=== PATIENT | female | born 1975 | race Caucasian/White ===

== ENCOUNTER 2017-01-08 16:07 | Inpatient (IN) | payer MEDICARE, OTHER ==
--- NOTE | ~2017-01-08 | PN ---
Unit #: [id number] #: [id number] Patient: JACOB CONKLIN [id number] [facility] [address] [place] [address] [id number] MR#: [id number] NAME: JACOB CONKLIN. ROOM: P252 Age: 41 Sex: F Admission Date: 01/08/2017 : 1975 Attending Physician: Jordan Lewis M.D. Admitting Physician: Jordan Lewis M.D. Primary Care Physician: Primary Care Physician No IRMACE PROGRESS NOTES DATE OF SERVICE: 01/10/2017 DISCUSSION Ms. Black is a 41-year-old female, seen on 01/10/2017. The patient dressed casually in hospital attire. Mood is sad, dysphoric, anxious. The patient reports medication is helping her decrease in anxiety. The patient's vital signs stable; temperature 97.7, pulse 68, and blood pressure 133/81. The patient was able to maintain safe behavior, able to participate in programing. The patient was out in milieu, interacted with peer, still having problem with the anxiety. Complete review of systems unremarkable. MENTAL STATUS EXAMINATION General appearance, the patient dressed casually in hospital attire. Attention span and concentration, fair. Oriented in place and person. Mood and affect, labile. Speech, monotone. Thought process, goal directed. The patient denied any thoughts of harming self or others, but still having lot of anxiety, mood lability, seclusive, isolative. Recent and remote memory, poor. Insight and judgment, poor. DIAGNOSIS Major depressive disorder, recurrent. ASSESSMENT AND PLAN Advised to continue with current medication and therapeutic protocol. If needed, consider further adjustment of medication. Dictated by... Brittany Aguilar/loree TD: 01/10/2017 15:22 JOB #: [id number] Unit #: [id number] #: [id number] Patient: JACOB CONKLIN [facility] PROGRESS NOTES Page 1 of 1 X Jordan Lewis MD X PROGRESS NOTE
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
--- NOTE | ~2017-01-08 | HP ---
Unit #: [id number] #: [id number] Patient: JACOB CONKLIN [id number] [place] [address] [id number] MR#: [id number] NAME: JACOB CONKLIN. ROOM: P252 Age: 41 Sex: F Admission Date: 01/08/2017 : 1975 Attending Physician: Jordan Lewis M.D. Admitting Physician: Jordan Lewis M.D. Primary Care Physician: Primary Care Physician No HISTORY AND PHYSICAL HISTORY OF PRESENT ILLNESS The patient is a 41-year-old female admitted to [address] [place] [address] on 01/08/2017 for suicidal ideations. PAST MEDICAL HISTORY Patient denies. PAST SURGICAL HISTORY The patient denies. SOCIAL HISTORY The patient is disabled. She lives at the [facility] [email or web address] [facility] [employer]. She smokes two packs of cigarettes daily, denies alcohol and drug use. FAMILY MEDICAL HISTORY Noncontributory. ALLERGIES No known drug allergies. CURRENT MEDICATIONS [place]. REVIEW OF SYSTEMS CONSTITUTIONAL: No fever or chills. HEENT: Denies any sore throat, ear pain or runny nose. CARDIOVASCULAR: Denies chest pain, irregular heart rhythm or palpitations. CHEST: Denies shortness of breath or cough. No hemoptysis. GASTROINTESTINAL: Denies nausea, vomiting, diarrhea or chronic constipation. ENDOCRINE: Denies history of increased thirst or urination. No recent significant weight loss or gain. GENITOURINARY: Denies dysuria, frequency, or hematuria. SKIN: Denies any rashes. HEMATOLOGIC: Denies history of increased bleeding or bruising. MUSCULOSKELETAL: Denies any hot, swollen joints. No generalized muscle pain. NEUROLOGIC: Denies problems with vision or speech. No frequent, severe headaches. No numbness, tingling or weakness in any extremities. Denies loss of bladder or bowel control. PHYSICAL EXAM GENERAL: She is awake, alert and oriented in no acute distress. Unit #: [id number] #: [id number] Patient: JACOB CONKLIN VITAL SIGNS: Temperature 98.0, heart rate 76, respiration 18, blood pressure 126/80. HEIGHT: 5'2". WEIGHT: 113 pounds. SKIN: Warm and dry without rash or lesion. HEENT: Normocephalic. TMs not viewed. Oral and nasal passages clear. Conjunctivae clear. PERRLA. EOMs intact. NECK: Supple without lymphadenopathy or thyromegaly. HEART: Regular rate and rhythm without murmur. LUNGS: Clear. ABDOMEN: Soft, nontender. : Not done. EXTREMITIES: No evidence of cyanosis, clubbing or edema. Moves all without focal deficit. NEUROLOGICAL: Grossly within normal limits. Cranial Nerves: II: Visual izaguirre are intact. III, IV AND : Extraocular movements are intact. Pupils are equal, round and reactive to light. V: Facial sensation is grossly normal. VII: Facial movements and expression are normal. VIII: Auditory acuity grossly intact. IX, X: Uvula is midline. Phonation is normal. XI: Patient shrugs shoulders and turns head normally. XII: Tongue protrudes in the midline. Sensory and Motor Function: Sensory and motor sensation is grossly normal. Motor: moves all extremities well. IMPRESSION 1. Psychiatric admission. 2. Nicotine dependence. RECOMMENDATIONS Psychiatric per psychiatrist. MEDICAL: No contraindication to participate in facility activities. MEDICAL PROGNOSIS Good. MEDICAL CONDITION Stable. Dictated by... Marianne Hazel/raine TD: 01/10/2017 01:07 JOB #: [id number] Unit #: [id number] #: [id number] Patient: JACOB CONKLIN HISTORY AND PHYSICAL Page 1 of 1 X JAMIE PRUETT APRN HISTORY AND PHYSICAL
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
--- NOTE | ~2017-01-08 | CO ---
Unit #: [id number] #: [id number] Patient: SOFIA CONKLIN [id number] [place] [address] [id number] I MR#: [id number] NAME: SOFIA CONKLIN. ROOM: P252 Age: 41 Sex: F Admission Date: 01/08/2017 : 1975 Attending Physician: Jordan Lewis M.D. Primary Care Physician: Primary Care Physician No Consultation Date: 01/11/2017 CONSULTATION REPORT SUBJECTIVE Sofia is a 41-year-old who was admitted and found to have an abnormal urinalysis on admission. She has no complaints of urgency, frequency, or dysuria. She has had no reported increased temperatures. OBJECTIVE Admission urinalysis, 4+ bacteria. ASSESSMENT Urinary tract infection. PLAN Bactrim DS one p.o. b.i.d. x3 days. Dictated by... Jesusita Brewster PKellyAKelly-C. for Brittany El/loree TD: 01/13/2017 01:13 JOB #: [id number] CONSULTATION REPORT Page 1 of 1 X Jesusita Brewster CONSULTATION REPORT
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
--- NOTE | ~2017-01-08 | PN ---
Unit #: [id number] #: [id number] Patient: JACOB CONKLIN [id number] [facility] [address] [place] [address] [id number] MR#: [id number] NAME: JACOB CONKLIN. ROOM: P252 Age: 41 Sex: F Admission Date: 01/08/2017 : 1975 Attending Physician: Jordan Lewis M.D. Admitting Physician: Jordan Lewis M.D. Primary Care Physician: Primary Care Physician Tressa IRIZARRY PROGRESS NOTES DATE 01/09/2017 DISCUSSION Ms. Black is a 41-year-old female seen on 01/09/2017. The patient's vital signs 97.6, 75, 16, 121/88. The patient continues to be sad, dysphoric, labile. The patient's mood was labile. Speech was rapid and pressured. No aggressive behavior but still sad depressed. Complete review of systems unremarkable. MENTAL STATUS EXAMINATION General appearance, the patient dressed casually. Attention span and concentration fair. Oriented to place and person. Mood and affect labile. Speech monotone. Thought process concrete. The patient denied any thoughts of harming self or others but still having passive SI. Mood was labile, guarded. Recent and remote memory poor. Insight and judgement poor. DIAGNOSES Major depressive disorder recurrent. Posttraumatic stress disorder chronic Anxiety disorder NOS ASSESSMENT/PLAN Advise to continue with current medication and therapeutic protocol. If needed consider further adjustment of medication. Dictated by... Brittany Aguilar/raine TD: 01/12/2017 02:59 JOB #: [id number] Unit #: [id number] #: [id number] Patient: JACOB CONKLIN [facility] PROGRESS NOTES Page 1 of 1 X Jordan Lewis MD PROGRESS NOTE
[~2017-01-08 16:07] MED LIST: ALBUTEROL17 GM INH; AMOXICILLIN875 MG PO; BACTRIM DS TABL1 TA1 PO; BACTROBAN22 GM TP; CELEXA PO; CLEOCIN HCL300 M1 PO; DICLOFENAC PO; NO MEDICATIONS; PEN-VEE K PO; RONDEC-DM SYRU120 ML PO; TYLENOL #3 PO; ULTRAM PO; VICODIN 5/1 TAB 5/50 PO; VOLTAREN75 MG PO
[2017-01-09 10:52] LABS: URINE APPEARANCE CLEAR; URINE BILIRUBIN NEG (NEG); URINE BLOOD 2+ (NEG); URINE COLOR YELLOW; URINE GLUCOSE NEG (NEG); URINE KETONE NEG (NEG); URINE LEUKOCYTE ESTERASE NEG (NEG); URINE NITRATE POS (NEG); URINE PH 6.5 (5-8); URINE PROTEIN NEG (NEG); URINE SPECIFIC GRAVITY 1.016 (1.003-1.035); URINE UROBILINOGEN 0.2 MG/DL (NEG)
[2017-01-09 10:55] LABS: URINE BACTERIA AUWI 4+ (NEGATIVE); URINE SQUAMOUS EPITHELIAL CELL FEW /[HPF]
[2017-01-09 11:07] LABS: U HYALINE CASTS AUWI 0-2 /[LPF]; URINE AMORPHOUS SEDIMENT AMORP URATES; URINE MUCUS PRESENT
[2017-01-09 11:13] LABS: AMPHETAMINE NEG (NEG); BARBITURATES NEG (NEG); BENZODIAZEPINES NEG (NEG); COCAINE NEG (NEG); MARIJUANA POS (NEG); OPIATES POS (NEG); TRICYCLIC ANTIDEPRESSANTS NEG (NEG); U METHADONE NEG (NEG)
[2017-01-10 09:45] LABS: BASOPHIL# 0.1 X10e3 (0-0.3); BASOPHIL% 0.6 % (0-2.5); EOSINOPHIL# 0.2 X10e3 (0-0.7); EOSINOPHIL% 1.7 % (0.0-7.0); HEMATOCRIT 39.2 % (35.0-45.0); HEMOGLOBIN 12.4 gm/dL (12.0-16.0); LYMPHOCYTE# 2.5 X10e3 (1.0-3.5); LYMPHOCYTE% 25.1 % (17.0-45.0); MEAN CELL VOLUME 93.2 FL (83-96); MEAN CORPUSCULAR HEMOGLOBIN 29.5 PG (28-34); MEAN CORPUSCULAR HGB CONC 31.6 g/dL (30-36); MEAN PLATELET VOLUME 9.8 FL (6.5-11.5); MONOCYTE# 0.6 X10e3 (0-1.0); MONOCYTE% 6.4 % (3.0-12.0); NEUTROPHIL# 6.5 X10e3 (1.5-7.1); NEUTROPHIL% 66.2 % (40-75); PLATELET COUNT 315 X10e3 (140-420); RED BLOOD COUNT 4.21 X10e (3.90-5.30); RED CELL DISTRIBUTION WIDTH 13.5 % (11.0-15.5); WHITE BLOOD COUNT 9.9 X10e3 (4.0-10.5)
[2017-01-10 09:56] LABS: DIFF IND NO
[2017-01-10 10:05] LABS: ALBUMIN SERUM 4.3 g/dL (3.5-5.0); BILIRUBIN,TOTAL 0.5 mg/dL (0.2-2.0); CALCIUM SERUM 9.3 mg/dL (8.4-10.2); CREATININE SERUM 0.5 mg/dL (0.6-1.4); GLOM FILT RATE Estimated 121.1 mL/min (>60); PROTEIN TOTAL SERUM 7.4 g/dL (6.0-8.3)
[2017-01-10 10:06] LABS: THYROID STIMULATING HORMONE 0.95 uIU/ml (0.34-5.60)
[2017-01-10 10:13] LABS: FREE THYROXIN (T4) 0.86 ng/dL (0.58-1.64)
== END 2017-01-12 15:00 | disposition home or self-care (01) | DRG 885 ==
LOC: P2L 16:07
PROVIDERS: Psychiatry & Neurology Psychiatry
DX: F39 Unspecified mood [affective] disorder (principal); F11.20 Opioid dependence, uncomplicated; N39.0 Urinary tract infection, site not specified; F17.210 Nicotine dependence, cigarettes, uncomplicated; F43.12 Post-traumatic stress disorder, chronic; F41.9 Anxiety disorder, unspecified; F12.20 Cannabis dependence, uncomplicated
CPT/HCPCS: 80053; 80307; 81003; 84439; 84443; 85025